=== PATIENT | female | born 1990 | race Caucasian/White ===

== ENCOUNTER 2024-07-11 19:22 | Emergency (ER) | payer BC, SELFPAY ==
--- OUTSIDE RECORDS SUMMARY | 2024-07-11 19:25 | XMS_ITS | Referral Summary ---
Author Organization [facility] Medical Office Building B Address [address] [place] [address] Care Team Providers Care Stick Welder Name Role Phone Jesu Deirdre Wilburnbeth Unavailable [phone] Jose Alberto De La Fuente MD Unavailable [phone] NP Primary Care Provider [phone] Allergies Active Allergy Reactions Criticality Noted Date Comments Sulfa (Sulfonamide Antibiotics) Itching,Rash Medium Medications vit 81-mmsg-ohvzw-dh a 27mg iron- 800 mcg-250 mg capsule Take by mouth Active Active Problems Problem Noted Date Diagnosed Date Class 1 obesity without seri ous comorbidity with body mass index (BMI) of 33.0 to 33.9 in adult 09/01/2023 Assessment & Plan (01/11/2024 1:22 PM CDT): BMI 33.39. She was counseled on the importance of obtaining a healthy weight and the risks of obesity. We discussed the effect of excess weight on her joints. Weight loss recommended. Assessment & Plan (09/01/2023 11:46 AM CDT): BMI 32.14. Discussed healthy diet and routine exercise. Encourage weight loss. Malar rash 09/01/2023 Assessment & Plan (09/01/2023 11:47 AM CDT): Rash on face could possibly be related to SLE versus rosacea. Labs ordered Fatigue 09/01/2023 Assessment & Plan (09/01/2023 11:47 AM CDT): Labs ordered Arthralgia 09/01/2023 Assessment & Plan (01/11/2024 1:21 PM CDT): Lengthy discussion about fibromyalgia. We discussed that it is a diagnosis of exclusion. There are no known tests for it. Just like there are not any definitive tests for psoriatic arthritis or non RA factor arthritis. I encouraged her to follow-up with the senior c developer because even if it is fibromyalgia they are the best equipped to treat. We discussed trying some physical therapy to see if that would alleviate some of her discomfort and she would like to pursue that. We discussed options for pain management including NSAIDs and acetaminophen, heat/ice, exercises per PT. Assessment & Plan (09/01/2023 11:47 AM CDT): Patient reports that the areas move around without any symptoms at present. History of gestational hypertension 07/20/2022 Arm paresthesia, left 07/03/2022 Chronic suprapubic pain 06/05/2021 Assessment & Plan (07/16/2021 1:18 PM CASTING MACHINE SET UP OPERATOR): Not well controlled, patient continues to have multiple episodes of pain; most related to menstrual cycles Patient has irregular menstrual cycles, having menstrual bleeding approximately every 2 weeks unless prolonged duration Patient to follow with Gynecology, as patient is working on getting with partner, patient is interested in going to fertility clinic Will follow-up with patient in next appointment to review recommendations imaging Evaluation by Gynecology determine sit pain is non gynecological in origin; will continue workup for possible GI related pain Assessment & Plan (06/05/2021 1:31 PM CASTING MACHINE SET UP OPERATOR): Episodic in nature, unclear etiology; patient had previous cholecystectomy, but continues to have pain -review of CT abdomen/pelvis from 2019 demonstrates ovarian cysts and nabothian cyst -may consider pelvic US vs repeat CT abdomen/pelvis Hidradenitis suppurativa 09/27/2020 Upper abdominal pain 01/12/2020 Overview (01/12/2020): Added automatically from request for surgery [id number] Assessment & Plan (01/21/2020 11:23 PM CDT): Schedule EGD to rule out PUD. Schedule HIDA scan wit ejection fraction. Maintain low fat diet. Follow up 1 month. MRSA (methicillin resistant staph aureus) cultur e positive 03/23/2018 Overview (03/28/2022): + Nasal swab on 03-12-18 01/02/22: negative nasal swab 02/28/22: negative nasal swab Benign neoplastic disease 08/30/2015 Resolved Problems Problem Noted Date Diagnosed Date Resolved Date Screening for lipid disorders 09/01/2023 01/11/2024 Assessment & Plan (09/01/2023 11:47 AM CDT): Lipid panel ordered Preeclampsia in period 07/04/2022 07/20/2022 Gestational hypertension, antepartum 06/06/2022 07/20/2022 Elevated blood pressure affe cting in third trimester, antepartum 05/09/2022 Chronic cholecystitis 02/21/20202020 Overview (02/21/2020): Added automatically from request for surgery [id number] Assessment & Plan (03/13/2020 11:06 AM CDT): Diet as tolerated. Okay to return to work with light duty. No heavy lifting greater than 20 lb for 4 weeks. No submerging incisions for 4 weeks. Please call for any further questions or concerns. Assessment & Plan (02/21/2020 8:35 AM CDT): I will set the patient up for laparoscopic cholecystectomy. Risks and benefits have been explained to include bleeding, infection and post cholecystectomy diarrhea. All questions have been answered. Pre-admission testing will be sent in. Postoperative instructions have also been gone over. Positive GBS test 06/17/2018 11/24/2021 GBS bacteriuria 03/12/2018 11/24/2021 Overview (03/12/2018): Likely external contamination. Vaginal delivery 12/06/2019 37 weeks gestation of 12/06/2019 Immunizations Name Administration Dates Next Due Influenza, Quadrivalent, Ann l Culture-based MDCK, Preservative Free, Antibiotic Free, Intramuscular 04/14/2020 Influenza, Quadrivalent, Spl it, Preservative Free, Intramuscular 05/23/2022,04/09/2021,02/05/2018 Influenza, Unspecified 03/24/2023(Deferred: Tonia ent Refused) Tdap 05/23/2022,05/03/2018 Social History Tobacco Use Types Packs/Day Years Used Date Smoking Tobacco: Never Smokeless Tobacco: Never Tobacco Cessation:Counseling Given: Not Answered Alcohol Use Standard Drinks/Week Comments Not Currently 0 (1 standard drink = 0.6 oz pur e alcohol) socially Social Connection and Isolat ion Panel [NHANES] Answer Date Recorded In a typical week, how many times do you talk on the phone with family, friends, or neighbors? More than three times a week 07/04/2022 How often do you get togethe r with friends or relatives? More than three times a week 07/04/2022 How often do you attend chur ch or gnosticism services? Never 07/04/2022 Do you belong to any clubs o r organizations such as druze groups, unions, fraternal or athletic groups, or school groups? No 07/04/2022 How often do you attend meet ings of the clubs or organizations you belong to? Never 07/04/2022 Are you , , di vorced, , never , or living with a partner? 07/04/2022 AUDIT-C Answer Date Recorded Q1: How often do you have a drink containing alc ohol? Monthly or less 11/16/2023 Average Number of Drinks Not on file 024 Frequency of Binge Drinking Not on file 10/30 Overall Financial Resource Strain (CARDIA) Answe r Date Recorded How hard is it for you to pa y for the very basics like food, housing, medical care, and heating? Not hard at all 07/04/2022 PHQ-2 Answer Date Recorded PHQ-2 Total Score (If total score is 3 or more points, staff should administer the PHQ-9) 0 01/28/2024 [facility] - Occupational Stress Questionnaire Answer Date Recorded Do you feel stress - tense, restless, nervous, or anxious, or unable to sleep at night because your mind is troubled all the time - these days? Not at all 07/04/2022 Exercise Vital Sign Answer Date Recorde d On average, how many days pe r week do you engage in moderate to strenuous exercise (like a brisk walk)? 3 days 06/06/2022 On average, how many minutes do you engage in exercise at this level? 30 min 06/06/2022 Hunger Vital Sign Answer Date Recorded Within the past 12 months, y ou worried that your food would run out before you got the money to buy more. Never true 07/04/19 23 Within the past 12 months, t he food you bought just didn't last and you didn't have money to get more. Never true 07/04/2022 PRAPARE - Transportation Answer Date Re corded In the past 12 months, has l ack of transportation kept you from medical appointments or from getting medications? No 07/2022 In the past 12 months, has l ack of transportation kept you from meetings, work, or from getting things needed for daily living? No 07/04/2022 Housing Stability Vital Sign Answer Angel e Recorded In the last 12 months, was t here a time when you were not able to pay the mortgage or rent on time? No 07/04/2022 Number of Places Lived in the Last Year Not on f ile 07/04/2022 In the last 12 months, was t here a time when you did not have a steady place to sleep or slept in a prison (including now)? No 07/04/2022 [place] Depression Scale Answer Date Recorded [place] Depression Scale Total 1 07/04/2022 The thought of harming myself has occurred to me . Never 07/04/2022 Personal Safety Answer Date Recorded Have you ever been in or are you currently in a harmful physical or emotional relationship or is someone making you feel afraid or unsafe? Denies 12/04/2023 Comments No Sex and Gender Information Value Date Recorded Sex Assigned at Not on file Legal Sex Female 8:23 AM CASTING MACHINE SET UP OPERATOR Gender Identity Not on file Sexual Orientation Not on file Last Filed Vital Signs Vital Sign Reading Time Taken Comments Blood Pressure 116/70 01/28/2024 8:52 AM CDT Pulse 98 01/11/2024 7:37 AM CDT Temperature 36.2 C (97.2 F) 01/11/2024 7:37 AM CDT Respiratory Rate 15 12/04/2023 9:30 PM CDT Oxygen Saturation 97% 01/11/2024 7:37 AM CDT Inhaled Oxygen Concentration - - Weight 104.3 kg (230 lb) 01/28/2024 8:52 AM CDT Height 177.8 cm (5' 10 ) 01/28/2024 8:52 AM CDT Body Mass Index 33 01/28/2024 8:52 AM CDT Plan of Treatment Not on file Procedures Procedure Name Priority Date/Time Associated Diagnosis Comments PAP, REFLEX HPV Routine 01/28/2024 9:22 AM CDT Well woman exam HEPATITIS C ANTIBODY Routine 12/05/2021 1:17 PM CDT Encounter for supervision of other normal in first trimester 11 weeks gestation of from Last 3 Months or Most Recently Relevant to Health Maintenance Results * Pap, reflex HPV (01/28/2024 9:22 AM CDT) CLINICAL INFORMATION: [employer] Comment:Routine exam LMP [employer] Comment:[id number] Previous Pap [employer] [facility] Comment:NONE GIVEN Prev. Bx [employer] Comment:NONE GIVEN SOURCE: [employer] [facility] [employer] Comment:Cervix, Endocervix Pap, specimen adequacy [employer] [facility] Comment: Satisfactory for evaluation. Endocervical/transformation zone component present. HPV interp [employer] [facility] [place] Comment: Cytology Results: Negative for intraepithelial lesion or malignancy. COMMENTS [employer] [facility] [employer] Comment: This Pap test has been evaluated with computer assisted technology. Foreign Legal Consultant [facility] [employer] Comment: LMT, CT(ASCP) CT screening location: [place] [address] [place] [address] Pathologist [employer] Comment: Sanjeev Delacruz M.D., Board Certified in Anatomic Pathology and Clinical Pathology(electronic signature) Comment [employer] Comment: EXPLANATORY NOTE: The Pap is a screening test for cervical cancer. It is not a diagnostic test and is subject to false negative and false positive results. It is most reliable when a satisfactory sample, regularly obtained, is submitted with relevant clinical findings and history, and when the Pap result is evaluated along with historic and current clinical information. Thin prep 01/28/2024 9:22 AM CDT 01/29/2024 5:24 AM CDT us Yovana Silva DRILLER MACHINE LAB CYTOLOGY ORDERABLES Final Re sult Performing Organization Address [facility] Co de Phone Number [facility] [address] [place] [address] * Hepatitis C antibody (12/05/2021 1:17 PM CDT) Hep C Ab NON-REACTI VE NON-REACT KATELIN [facility] SIGNAL TO CUT-OFF 0.01 <1.00 [facility] Comment: HCV antibody was non-reactive. There is no laboratory evidence of HCV infection. In most cases, no further action is required. However, if recent HCV exposure is suspected, a test for HCV RNA (test code 19767) is suggested. For additional information please refer to http://education.[employer]/faq/DYT36k5 (This link is being provided for informational/ educational purposes only.) Blood specimen (specimen) 12/05/2021 1:17 PM CDT 12/05/2021 1:18 PM CDT us Alice Ochoa NP LAB MICROBIOLOGY - GENERA L ORDERABLES Final Result Performing Organization Address [facility] Co de Phone Number [facility] [address] [address] from Last 3 Months or Most Recently Relevant to Health Maintenance Insurance BLUE [employer] [place] [employer] [place] Advance Directives For more information, please contact: [phone] * Full Code (Latest Code Status on File) Date Activated Date Inactivated Comments 06/06/2022 7:10 AM 06/08/2022 9:23 PM Full CPR in ca se of cardiopulmonary arrest * Full Code Date Activated Date Inactivated Comments 06/20/2018 7:57 PM 06/23/2018 2:55 AM * Full Code Date Activated Date Inactivated Comments 06/20/2018 4:16 AM 06/20/2018 7:57 PM Full CPR in case of cardiopulmonary arrest Care Teams Stick Welder Relationship Specialty Start Date End Date Deirdre Lane NP [address] [place] [address] PCP - General Rail Bonder 09/01/23 Deirdre Nails DO 1 PROF[address] [place] [address] Consulting Physician Obstetrics and Gynecology 06/08/22 Jose Alberto De La Fuente MD 1 [address] [place] [address] Anime Designer Obstetrics and Gynecology 06/08/22
--- OUTSIDE RECORDS SUMMARY | 2024-07-11 19:25 | XMS_ITS | Clinical Summary ---
Author Organization [facility] Medical [facility] Building B Address [address] [place] [address] Care Team Providers Care Divorce Lawyer Name Role Phone Jesu Deirdre Wilburnbeth Unavailable [phone] Jose Alberto De La Fuente MD Unavailable [phone] NP Primary Care Provider [phone] Allergies Active Allergy Reactions Criticality Noted Date Comments Sulfa (Sulfonamide Antibiotics) Itching,Rash Medium Medications vit 48-hgke-lmtnn-dh a 27mg iron- 800 mcg-250 mg capsule [...] I encouraged her to follow-up with the servicer because even if it is fibromyalgia they [...] 06/05/2021 Assessment & Plan (07/16/2021 1:18 PM APPRENTICESHIP REPRESENTATIVE): Not well controlled, patient continues to have [...] pain Assessment & Plan (06/05/2021 1:31 PM APPRENTICESHIP REPRESENTATIVE): Episodic in nature, unclear etiology; patient had previous cholecystectomy, but continues to have pain -review of CT abdomen/pelvis from 2019 demonstrates ovarian cysts and nabothian cyst -may consider pelvic US vs repeat CT abdomen/pelvis Hidradenitis suppurativa 09/27/2020 Upper abdominal pain 01/12/2020 Overview (01/12/2020): Added automatically from request for surgery [id number] Assessment & Plan (01/21/2020 11:23 PM CDT): [...] (02/21/2020): Added automatically from request for surgery [id number] Assessment & Plan (03/13/2020 11:06 AM CDT): [...] Unspecified 03/24/2023(Deferred: Tonia ent Refused) Tdap 05/23/2022,05/03/2018 Surgical History Surgery Date Site/Laterality Comments OTHER SURGICAL HISTORY Left Mole removal- arm CHOLECYSTECTOMY 02/29/2020 Medical History Medical History Date Comments Depression Depression Anxiety Anxiety; Comment s: AWM 11/10/2013 - Abnormal Pap smear of cervix Chronic cholecystitis 02/21/2020 Added auto matically from request for surgery [id number] Family History Medical History Relation Name Comments Early Father Father Heart disease Father Father Cardiovascular disease; Hypertension Father Father Hypertension; Thyroid disease Mother Thyroid dise ase; Thyroid disease Mother's Sister Thyroid d isease; Heart disease Other Family history of Cardiovascular disease; Relation Name Status Comments Father Father Mother Mother's Sister Other Social History Tobacco Use Types Packs/Day Years [...] 07/04/2022 How often do you attend chur or rastafari services? Never 07/04/2022 Do you belong to any clubs o r organizations such as episcopalian groups, unions, fraternal or athletic groups, or [...] staff should administer the PHQ-9) 0 01/28/2024 [facility] - Occupational Stress Questionnaire Answer Date Recorded [...] place to sleep or slept in a correction (including now)? No 07/04/2022 [place] Depression Scale Answer Date Recorded [place] Depression Scale Total 1 07/04/2022 The thought [...] on file Legal Sex Female 8:23 AM APPRENTICESHIP REPRESENTATIVE Gender Identity Not on file Sexual Orientation Not on file Obstetrics History Para Term AB IAB SAB Ectopic Multiple Livin g Live Births 2 2 2 0 0 0 0 0 0 2 2 Date Outcome GA Total Labor Labor/2nd/3rd Weight Sex Type Anes PTL Ava A1 A5 Name Clin 2018 Term 37w 1d 6h 44m 4h 26m/2h 02m/0h 16m 3.818 kg (8 lb 6.7 oz) M Vag-S pont Epidur al N Livin g 8 8 SUZANNE MATTHEWS , Sydnee Jaimes MD Complications:None Delivery Location:[facility] ([facility]) 2022 Term 38w 2d 1h 48m 0h 37m/1h 05m/0h 06m 4.23 kg (9 lb 5.2 oz) M Vag-S pont Epidur al N Livin g 9 9 SUZANNE MATTHEWS , Jose Alberto Hopper MD Complications:Precipitous La bor (<3 hours) Delivery Location:[facility] ([facility]) Last Filed Vital Signs Vital Sign Reading [...] 01/28/2024 8:52 AM CDT Plan of Treatment Health Maintenance Due Date Last Done Comments Hepatitis B Screening 2010 Influenza Vaccine (#1) 2024 , 04/09/2021, 04/14/2020, Additional history exists Cervical Cancer Screening 01/27/20252023, 01/22/2023, 12/03/2021, Additional history exists Depression Screening 01/27/2025 01/28/2024, 09/01/2023, 01/22/2023, Additional history exists Regular Well Visit/Exam 18-64 01/27/2025 01/28/2024, 01/22/2023, 11/26/2020, Additional history exists DTaP/Tdap/Td Vaccine (3 - Td or Tdap) 05/23/2032 05/23/2022, 05/03/2018 Hepatitis C Screening Completed 12/05/2021, 018 HPV Vaccines Aged Out No longer eligi ble based on patient's age to complete this topic Pneumococcal vaccine <65 Aged Out No longer eligible based on patient's age to complete this topic Varicella Vaccines Discontinued Procedures Procedure Name Priority Date/Time Associated Diagnosis Comments PAP, REFLEX HPV Routine 01/28/2024 9:22 AM CDT Well woman exam HEPATITIS C ANTIBODY Routine 12/05/2021 1:17 PM CDT Encounter for supervision of other normal in first trimester 11 weeks gestation of from Last 3 Months or Most Recently Relevant to Health Maintenance Results * Pap, reflex HPV (01/28/2024 9:22 AM CDT) CLINICAL INFORMATION: [facility] Comment:Routine exam LMP [facility] Comment:[id number] Previous Pap Amanda Huff DBA [facility] Comment:NONE GIVEN Prev. Bx [facility] [place] Comment:NONE GIVEN SOURCE: [facility] [place] Comment:Cervix, Endocervix Pap, specimen adequacy [facility] [place] Comment: Satisfactory for evaluation. Endocervical/transformation zone component present. HPV interp [facility] [place] Comment: Cytology Results: Negative for intraepithelial lesion or malignancy. COMMENTS [facility] Comment: This Pap test has been evaluated with computer assisted technology. Application Infrastructure Engineer [facility] Comment: LMT, CT(ASCP) CT screening location: [place] [address] [place] [address] Pathologist [facility] Comment: Sanjeev Delacruz M.D., Board Certified in Anatomic Pathology and Clinical Pathology(electronic signature) Comment [facility] Comment: EXPLANATORY NOTE: The Pap is a [...] 9:22 AM CDT 01/29/2024 5:24 AM CDT Yovana Silva OPERATOR [employer] LAB CYTOLOGY ORDERABLES Final Re [facility] [address] [place] [address] * Hepatitis C antibody (12/05/2021 1:17 PM CDT) Pathologist [facility] Hep C Ab NON-REACTI VE NON-REACT KATELIN [facility] SIGNAL TO CUT-OFF 0.01 <1.00 [facility] Comment: HCV antibody was non-reactive. There is no laboratory evidence of HCV infection. In most cases, no further action is required. However, if recent HCV exposure is suspected, a test for HCV RNA (test code 89854) is suggested. For additional information please refer to http://education.[employer].M[employer]/faq/BKU78w3 (This link is being provided for informational/ educational purposes only.) Blood specimen (specimen) 12/05/2021 1:17 PM CDT 12/05/2021 1:18 PM CDT Alice Ochoa OPERATOR [employer] LAB MICROBIOLOGY - GENERA L ORDERABLES Final Result [facility] [address] [address] from Last 3 Months or Most Recently Relevant to Health Maintenance Insurance [employer] CHOICE [place] Member Subscriber Plan / Payer (Ef fective 2015-Present) Name:Chrissie Matthews Relation to Subscriber:Self Name:Chrissie Matthews Payer ID:[id number] (NAIC) Group ID:[id number] Type:BC OTHER Address: [place] [id number] [employer] [place] [employer] [place] [employer] [place] Advance Directives For more information, please contact: [phone] * Full Code (Latest Code Status on [...] in case of cardiopulmonary arrest Care Teams Divorce Lawyer Relationship Specialty Start Date End Date Deirdre Lane NP [address] [place] [address] PCP - General Gel Coater 09/01/23 Deirdre Nails DO 1 [address] [place] [address] Consulting Physician Obstetrics and Gynecology 06/08/22 Jose Alberto De La Fuente MD 1 [address] [place] [address] Moss Gatherer Obstetrics and Gynecology 06/08/22
[2024-07-11 19:40] VITALS: BP 133/86; PULSE 62; RESP 16; TEMP 36.2; O2SAT 98
--- NOTE | 2024-07-11 19:42 | ED_ITS ---
HPI - Female Genitourinary General Chief complaint: Urogenital-Female Stated complaint: Poss UTI Time Seen by Provider: 07/11/24 19:42 Source: patient and RN notes reviewed Mode of arrival: ambulatory Limitations: no limitations History of Present Illness HPI Narrative: 34-year-old female presented for complaint of burning with urination, frequency and urgency with low abdominal pressure for 2 days. Endorses this feels like UTI. She is . Denies hematuria, nausea, vomiting, abdominal pain, flank pain, constipation, diarrhea, fevers or chills. Related Data Allergies Allergy/AdvReac Type Severity Reaction Status Date / Time sulfamethoxazole Allergy Unknown Verified 01/23/17 17:30 trimethoprim Allergy Unknown Verified 01/23/17 17:30 Review of Systems Review of Systems: CONSTITUTIONAL: Denies body aches, fever, chills, or sweats. CARDIOVASCULAR: Denies chest pain, palpitations, or edema. RESPIRATORY: Denies cough or dyspnea. GASTROINTESTINAL: Denies abdominal pain, nausea, vomiting, or diarrhea. GENITOURINARY: Reports dysuria, frequency, urgency,denies hematuria, flank pain SKIN: Denies rash, itching, or wounds. MUSCULOSKELETAL: Denies back pain or myalgia. PMFSH Comments At time of signature, I have reviewed and agree with nursing past medical, surgical, social and family history unless otherwise noted. Please see nursing chart for further information. There is no relevant family history pertinent to the presenting complaint Exam Narrative: GENERAL: Well-appearing ENT: Mucous membranes pink and moist. NECK: Normal AROM. Supple. CHEST: No respiratory distress. Clear to auscultation. HEART: Regular rate and rhythm. ABDOMEN: Soft, nontender, nondistended, normal active bowel sounds. No CVA tenderness SKIN: Warm, dry, no rash. NEURO: No focal deficits. Alert and oriented x3. Gait steady. PSYCH: Normal affect. Course Course Emergency Course: Patient is aware of diagnosis, understands and agrees to treatment plan. Anti cipatory guidance given. Patient agrees to follow-up as directed and is aware of reasons to seek care at the emergency department. Portions of this record may have been created with voice recognition software Level of Care: Express Care Visit Vital Signs Vital signs: Vital Signs Temperature 97.2 F L 07/11/24 19:40 Pulse Rate 62 07/11/24 19:40 Respiratory Rate 16 07/11/24 19:40 Blood Pressure 133/86 07/11/24 19:40 Pulse Oximetry 98 07/11/24 19:40 Oxygen Delivery Room Air 07/11/24 19:40 Temperature 97.2 F L 07/11/24 19:40 Pulse Rate 62 07/11/24 19:40 Respiratory Rate 16 07/11/24 19:40 Blood Pressure 133/86 07/11/24 19:40 Pulse Oximetry 98 07/11/24 19:40 Oxygen Delivery Room Air 07/11/24 19:40 Reviewed MDM - Female Genitourinary MDM Narrative Medical decision making narrative: Discussed physical exam findings. Will culture urine. Pt is . Sulfa allergy. Advised supportive measures and signs/symptoms to go to the ER. Pt is appropriate for outpt treatment and f/u. Differential Diagnosis Differential diagnosis: Likely urinary tract infection, bacterial vaginosis, trichomoniasis, cervicitis, ovarian cyst, vaginitis and cystitis Lab Data Labs: Lab Results 07/11/24 Range/Units 19:46 POC Urine Color Yellow POC Urine Clarity Clear POC Urine pH 6.0 POC Ur Specif Armstrong 1.015 POC Urine Protein Negative (Negative) POC Ur Glucose (UA) Negative (Negative) POC Urine Ketones Negative (Negative) POC Urine Blood 2+ (Negative) POC Urine Nitrite Positive (Negative) POC Urine Bilirubin Negative (Negative) POC Urine Urobilinogen 0.2 POC U Leukocyte Esteras 1+ (Negative) Discharge Plan Discharge Clinical Impression: Urinary tract infection Patient Disposition: Home, Self-Care Condition: Stable Instructions: Antibiotic Form, Urinary Tract Infection in Women (ED) Additional Instructions: Take the antibiotic as prescribed The urine will be sent of for a culture to identify what type of bacteria is causing your infection. If the culture shows that the antibiotic will not get rid of your infection, you will be notified and a new antibiotic will be called in for you. Increase water intake you will need to follow up with your PCP, call to schedule an appointment. Go to the ER for any worsening symptoms or concerns Patient Language: Y[place]ut Prescriptions: New amoxicillin-pot clavulanate [Augmentin] 500-125 mg tablet 1 tablet PO Q12H 5 Days Qty: 10 0RF Follow-up/Referrals: PHYSICIAN NOT ON STAFF,NONSTAFF [Primary Care Provider] -
[2024-07-11 19:49] LABS: EDUAAPPEAR Clear; EDUABILI Negative (Negative); EDUABLOOD 2+ (Negative); EDUACOLOR1 Yellow; EDUAGLUCOSE Negative (Negative); EDUAKETONE Negative (Negative); EDUALEUKO 1+ (Negative); EDUANITRATE Positive (Negative); EDUAPROTEIN Negative (Negative); EDUASPGRAVITY 1.015; EDUAUROBILI 0.2
== END 2024-07-11 19:58 | disposition home or self-care (01) ==
PROVIDERS: Emergency Provider Nurse Practitioner Family
DX: N39.0 Urinary tract infection, site not specified (principal); B96.20 Unspecified Escherichia coli [E. coli] as the cause of diseases classified elsewhere
CPT/HCPCS: 81003; 87086; 87186; 99203; G0463